=== PATIENT | female | born 1980 | race Caucasian/White ===

== ENCOUNTER → 2021-02-05 13:49 | Outpatient (CLI) | payer OTHER, SELFPAY ==
[2021-02-05] MEDS: COVID-19 VACC, Ad26(JANSSEN)/PF 0.5 ML IM (14:07)
== END ==
PROVIDERS: Family Provider Family Medicine; PCP Family Medicine; Visit Provider Internal Medicine
DX: Z23 Encounter for immunization (principal)
CPT/HCPCS: 0031A; 91303

== ENCOUNTER 2025-01-08 08:06 | Emergency (ER) | payer OTHER, SELFPAY ==
[2025-01-08] VITALS (24 sets, daily range): BP systolic 93–151; BP diastolic 53–79; PULSE 66–124; RESP 14–20; TEMP 36.7; O2SAT 96–100; BMI 21.8
--- NOTE | 2025-01-08 08:25 | EKG_ITS ---
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
[2025-01-08 08:41] LABS: Add Manual Diff / Slide Review NO; Basophils Absolute Auto 100 /uL (0-100); Basophils Percent Auto 1.1 % (0-2); Eosinophils Absolute Auto 300 /uL (0-450); Eosinophils Percent Auto 4.7 % (2-4); Hematocrit 42.2 % (36-46); Hemoglobin 14.1 g/dL (12.0-16.0); Lymphocytes Absolute Auto 1600 /uL (1100-4500); Lymphocytes Percent Auto 29.3 % (25-40); Mean Corpuscular HGB Conc 33.4 % (30-36); Mean Corpuscular Hemoglobin 29.7 PG (26-34); Monocytes Absolute Auto 600 /uL (0-900); Monocytes Percent Auto 11.5 % (3-14); Neutrophils Absolute Auto 2800 /uL (1500-7000); Neutrophils Percent Auto 53.4 % (50-75); Platelet Count 282 X10^3/uL (150-400); Red Blood Cell Count 4.74 X10^6/uL (4.0-5.2); Red Cell Distribution Width 14.3 % (11.6-14.8); White Blood Cell Count 5.3 X10^3/uL (4.5-11.0)
[2025-01-08 08:50] LABS: Albumin 4.7 g/dL (3.5-5.0); Albumin Globulin Ratio 1.2 (1.0-2.8); Alkaline Phosphatase 324 U/L (38-126); Aspartate Aminotransferase 518 IU/L (14-36); BUN Creatinine Ratio 10.4 (6-22); Bilirubin Total 3.1 mg/dL (0.2-1.3); Blood Urea Nitrogen 10 mg/dL (7-17); Calcium 9.6 mg/dL (8.4-10.2); Carbon Dioxide 27 mmol/L (22-32); Chloride 102 mmol/L (98-107); Estimated Glomerular Filt Rate > 60 mL/min (>60); Globulin 3.9 g/dL (1.7-4.1); Glucose 95 mg/dL (70-100); HEMOLYSIS < 15 (0-50); Lipase 101 U/L (23-300); Potassium 3.8 mmol/L (3.4-5.1); Sodium 139 mmol/L (137-145); Total Protein 8.6 g/dL (6.3-8.2)
--- NOTE | 2025-01-08 08:51 | ED.ABDPAIN ---
HPI - Abdominal Pain General Chief Complaint: Abdominal Pain Stated Complaint: abd pain Time Seen by Provider: 01/08/25 08:39 History of Present Illness HPI narrative: Patient is a healthy 44 year old female presenting today with upper abdominal pain. She says she has lost her appetite for the last 4 days. She sometimes feels nauseous but not vomiting. She gets for abdominal pain attacks the last anywhere from 2-4 hours. Really not eating but is trying to drink. She noticed change in her urine color 2 days ago she tried to drink more fluid but it did not change the color of her urine. She has no change in bowel habits no chest pain or palpitations. Although nursing noted some arrhythmia. She denies chest pain or palpitations. She still has her gallbladder Related Data Allergies Allergy/AdvReac Type Severity Reaction Status Date / Time No Known Drug Allergies Allergy Verified 02/05/21 13:54 Exam Initial Vital Signs Initial Vital Signs: Vital Signs Pulse Rate 124 H 01/08/25 08:16 Pulse Oximetry 98 01/08/25 08:16 GENERAL: Alert pleasant 44-year-old and in [no acute] distress. HEENT: Head atraumatic,EOMI, pupils reactive, face symmetric, [moist] mucous membranes CARDIOVASCULAR: Regular rate and rhythm without murmurs, rubs or gallops. RESPIRATORY: Breath sounds equal bilaterally, no wheezes rales or rhonchi. ABDOMEN: Soft, tender right upper quadrant positive Londono's sign minimal epigastric pain no bloating no distention EXTREMITIES: Normal range of motion, no clubbing or edema. Neurovascularly intact NEUROLOGICAL: Alert and oriented x4.Normal gait and speech. Cranial nerves II through XII grossly intact. SKIN: Warm, dry, no laceration, no petechiae, no rashes or lesions. Course Orders Ordered: Discontinued Medications Hydromorphone HCl (Hydromorphone 0.5 Mg Inj) 0.5 mg IV NOW ONE Stop: 01/08/25 14:44 Last Admin: 01/08/25 18:38 Dose: 0.5 mg Documented By: FELICIA Sodium Chloride (Normal Saline 0.9%) 1,000 mls @ 1,000 mls/hr IV BOLUS ONE Stop: 01/08/25 12:32 Last Infusion: 01/08/25 12:48 Dose: Infused Documented By: Admin: 01/08/25 11:41 Dose: 1,000 mls/hr Documented By: JHON Sodium Chloride (Normal Saline 0.9%) 1,000 mls @ 100 mls/hr IV CONT RAINA Last Infusion: 01/08/25 20:39 Dose: 200 mls/hr Documented By: Infusion: 01/08/25 18:20 Dose: 200 mls/hr Documented By: Admin: 01/08/25 15:18 Dose: 100 mls/hr Documented By: FELICIA Sodium Chloride (Normal Saline 0.9%) 1,000 mls @ 200 mls/hr IV CONT RAINA Ketorolac Tromethamine (Ketorolac 30 Mg/Ml Vial) 15 mg IV NOW ONE Stop: 01/08/25 08:52 Last Admin: 01/08/25 14:58 Dose: 15 mg Documented By: JHON Ketorolac Tromethamine (Ketorolac 30 Mg/Ml Vial) 15 mg IV NOW ONE Stop: 01/08/25 17:04 Last Admin: 01/08/25 17:14 Dose: Not Given Documented By: KEYONNA Lorazepam (Lorazepam 2 Mg/Ml Inj) 0.5 mg IV NOW ONE Stop: 01/08/25 12:49 Last Admin: 01/08/25 12:53 Dose: 0.5 mg Documented By: KEYONNA Ondansetron HCl (Ondansetron 4 Mg/2 Ml Inj) 4 mg IV NOW PRN PRN Reason: Nausea And Vomiting Last Admin: 01/08/25 11:41 Dose: 4 mg Documented By: JHON Ondansetron HCl (Ondansetron 4 Mg Odt) 4 mg PO NOW PRN PRN Reason: Nausea And Vomiting Vital Signs Vital signs: Vital Signs - 8 hr 01/08/25 10:00 01/08/25 10:00 01/08/25 10:30 Pulse Rate 78 Respiratory Rate 16 Blood Pressure 111/78 112/69 Pulse Oximetry 98 01/08/25 10:30 01/08/25 11:00 01/08/25 11:00 Pulse Rate 77 73 Respiratory Rate 20 18 Blood Pressure 121/57 L Pulse Oximetry 97 97 MDM - Abdominal Pain Lab Data 01/08/25 08:24 01/08/25 08:24 Labs: Lab Results 01/08/25 Range/Units 08:24 WBC 5.3 (4.5-11.0) X10^3/uL RBC 4.74 (4.0-5.2) X10^6/uL Hgb 14.1 (12.0-16.0) g/dL Hct 42.2 (36-46) % MCV 89.0 (80-100) fL MCH 29.7 (26-34) PG MCHC 33.4 (30-36) % RDW 14.3 (11.6-14.8) % Plt Count 282 (150-400) X10^3/uL Neut % (Auto) 53.4 (50-75) % Lymph % (Auto) 29.3 (25-40) % [place] % (Auto) 11.5 (3-14) % Eos % (Auto) 4.7 H (2-4) % Baso % (Auto) 1.1 (0-2) % Neut # (Auto) 2800 (1559-5049) /uL Lymph # (Auto) 1600 (9461-9770) /uL [place] # (Auto) 600 (0-900) /uL Eos # (Auto) 300 (0-450) /uL Baso # (Auto) 100 (0-100) /uL Sodium 139 (137-145) mmol/L Potassium 3.8 (3.4-5.1) mmol/L Chloride 102 (98-107) mmol/L Carbon Dioxide 27 (22-32) mmol/L BUN 10 (7-17) mg/dL Creatinine 0.96 (0.52-1.04) mg/dL Estimated GFR > 60 (>60) mL/min BUN/Creatinine Ratio 10.4 (6-22) Glucose 95 (70-100) mg/dL Calcium 9.6 (8.4-10.2) mg/dL Total Bilirubin 3.1 H (0.2-1.3) mg/dL AST 518 H (14-36) IU/L ALT 864 H (<35) IU/L Alkaline Phosphatase 324 H (38-126) U/L Total Protein 8.6 H (6.3-8.2) g/dL Albumin 4.7 (3.5-5.0) g/dL Globulin 3.9 (1.7-4.1) g/dL Albumin/Globulin Ratio 1.2 (1.0-2.8) Lipase 101 (23-300) U/L Imaging Data US - abdomen: Radiologist's Impression: PROCEDURE: US ABDOMEN LIMITED INDICATIONS: RUQ TECHNIQUE: Real-time focused scanning was performed of the abdomen, with image documentation. COMPARISON: None. FINDINGS: The liver is normal in size and demonstrates no suspicious lesions. The portal vein and the IVC are demonstrated to be patent. The gallbladder is contracted and full of stones. The gallbladder wall measures at the upper limits of normal at 3 mm. No specific pericholecystic fluid is seen. The sonographic Londono sign is negative. There is no biliary dilatation, the common bile duct measures 4 mm. No significant pancreatic abnormality is seen on these images. No free fluid is seen. IMPRESSION: The gallbladder is contracted and full of stones. No additional sonographic signs of cholecystitis are seen. No biliary dilatation. Dictated by: Phill Granado M.D. on 01/08/2025 at 9:03 Approved by: Phill Granado M.D. on 01/08/2025 at 9:04 MRCP: Radiologist's Impression: PROCEDURE: XR CHEST 1V INDICATIONS: choking/heimlich needed/aspiration? TECHNIQUE: One view of the chest was acquired. COMPARISON: [facility], , XR CHEST 1V, 08/20/2022, 0:19. FINDINGS: Surgical changes and devices: None. Lungs and pleura: At the left lung base, there is poorly defined, streaky opacity. An incomplete inspiratory result is noted, causing a crowded appearance to the lung markings. No pneumothorax or significant pleural effusions are seen. Mediastinum: The cardiac contours are within normal limits. The aorta demonstrates calcification and tortuosity. Bones and chest wall: There is a remote fracture of the left humeral neck. Mac row digest Mild dextroconvex scoliotic curvature is seen. No suspicious bony lesions. Overlying soft tissues appear unremarkable. IMPRESSION: Poorly defined streaky opacity seen at the left lung base. Differential diagnosis includes atelectasis versus aspiration pneumonia. Please consider follow-up CT versus short-term follow-up plain film. Dictated by: Phill Granado M.D. on 01/08/2025 at 14:12 ECG Data Attestation: I personally reviewed and interpreted this ECG as follows: Interpretation: Sinus rhythm rate 91 MA interval 152 QRS [address] changes MDM Narrative Medical decision making narrative: MDM CC: Abdominal pain Complicating co-morbidities: Healthy female Medical records reviewed: None available Differential considered: Cholecystitis cholelithiasis choledocholithiasis pancreatitis Exam documented above, pertinent findings include: 44-year-old female appears uncomfortable jaundice appreciated tender in right upper quadrant and epigastric region otherwise abdomen is soft Lab Test results independently reviewed as above. Pertinent findings: Bilirubin 3.1 AST 518 ALT 684 Alk-phos 324 Lipase 101 No leukocytosis no anemia no DOROTHY, electrolytes stable Independently reviewed EKG as above Sinus rhythm no ischemia Imaging studies independently reviewed: Ultrasound he was a contracted gallbladder full of stones without signs of cholecystitis MRCP concerning for common bile duct dilation, CBD measures 8 mm. Gallbladder distended with numerous stone Consultations: 1739 Dr. Ivan accepts to Treatments: Toradol Zofran Re-evaluations: Patient having headache received IV fluids and Dilaudid Discussion: Patient 44-year-old healthy female presenting today with ongoing right upper quadrant pain and decreased appetite. Blood work does show elevated bilirubin at 3.1 and liver enzymes. Ultrasound confirms cholelithiasis. MRI ordered to rule out choledocholithiasis. He has no leukocytosis or fever to suggest acute cholecystitis. MRCP confirms common bile duct stone looking for transfer Patient signed out to Dr. Rubio Discharge Plan Departure Patient Disposition: General Acute Hospital Clinical Impression: Choledocholithiasis Referrals: Marisa Donohue MD [Primary Care Provider] -
[2025-01-08 09:17] LABS: Alanine Aminotransferase 864 IU/L (<35)
--- NOTE | 2025-01-08 09:25 | DI.MRI.S_ITS ---
PROCEDURE: MR ABDOMEN WO/W CON INDICATIONS: elevated bili and liver enzymes r/o cbd stone TECHNIQUE: Coronal HASTE, axial 2D FLASH in- and [id number]; axial breath-hold T2 FSE with fat saturation from the hepatic dome to the iliac crests. Oblique coronal thin-slice and radial thick slab HASTE through the biliary system. Dynamic axial VIBE during administration of contrast. Post-contrast coronal VIBE or 2D FLASH with fat saturation from the hepatic dome to the iliac crests. Optional diffusion weighted imaging and ADC may be performed. COMPARISON: [facility], US, US ABDOMEN LIMITED, 01/08/2025, 9:32. FINDINGS: Image quality: This examination is limited by involuntary motion artifact. Gallbladder: Numerous gallstones are seen layering within the gallbladder. The gallbladder is prominent in size. No mahi pericholecystic fluid can be seen. A cystic duct stone is seen, as on series 3, image 12. Biliary ducts: In this patient with this given history, scrutiny is given to the biliary ducts. No intrahepatic biliary ductal dilatation is seen. The common bile duct is mildly enlarged at 8 mm. There is an abrupt cut off seen of the common bile duct distally, which is best seen on series 3 image 15. Pancreas: No ductal dilation. OTHER: Lung bases: Unremarkable. Liver: No solid mass. Spleen: Size is within normal limits. Adrenal Glands: No adrenal nodules. Kidneys and Ureters: No hydronephrosis. No solid mass. No complex renal cystic lesion which requires follow up. Stomach and Bowel: Normal colonic caliber, without significant wall thickening. Peritoneum: No abnormal intraperitoneal fluid. No free air. Ventral Wall: No hernia. Abdominal Nodes: No retroperitoneal or mesenteric adenopathy by size criteria. Vessels: Aorta and inferior vena cava are normal in size. Bones: No aggressive osseous abnormality. IMPRESSION: Moderate suspicion for a distal common bile duct stone, with abrupt cut off seen of the distal common bile duct. The common bile duct itself is mildly enlarged at 8 mm. The gallbladder is abnormal, with numerous internal stones. The gallbladder itself is enlarged. A cystic duct stone is present. Dictated by: Phill Granado M.D. on 01/08/2025 at 13:13 Approved by: Phill Granado M.D. on 01/08/2025 at 13:26
[2025-01-08] MEDS: ONDANSETRON 4 MG/2 ML INJ IV (11:41)
[2025-01-08] MEDS: SODIUM CHLORIDE 0.9% 1,000 ML 1000 ML IV (11:41)
[2025-01-08] MEDS: LORazepam 2 MG/ML INJ 0.5 MG IV (12:53)
[2025-01-08] MEDS: KETOROLAC 30 MG/ML VIAL 15 MG IV (14:58)
[2025-01-08] MEDS: SODIUM CHLORIDE 0.9% 1,000 ML 100 ML IV (15:18)
--- NOTE | 2025-01-08 17:29 | PC.NURSE ---
Pt offered dilaudid,she declined at this time.
[2025-01-08] MEDS: HYDROMORPHONE 0.5 MG INJ IV (18:38)
--- NOTE | 2025-01-08 19:38 | PC.NURSE ---
Pt ambulatory to restroom without difficulty or assistance
--- NOTE | 2025-01-08 20:45 | PC.NURSE ---
Pt transferred to , IV fluids running per orders. Reported called to David GARNICA at .
== END 2025-01-08 20:45 | disposition short-term general hospital (02) ==
PROVIDERS: Emergency Provider Emergency Medicine; Family Provider Family Medicine; PCP Family Medicine
DX: K80.50 Calculus of bile duct without cholangitis or cholecystitis without obstruction (principal); R11.0 Nausea; R10.11 Right upper quadrant pain
CPT/HCPCS: 36415; 74181; 76705; 80053; 83690; 85025; 93005; 93010; 96361; 96374; 96375; 99284; J1171; J1885; J2060; J2405